=== PATIENT | female | born 1955 | race Caucasian/White ===

== ENCOUNTER 2020-06-16 22:52 | Emergency (ER) | payer MEDICARE, SELFPAY ==
[2020-06-16 22:54] VITALS: BP 105/72; PULSE 94; RESP 18; TEMP 36.6; O2SAT 98; BMI 20.5
--- NOTE | 2020-06-16 23:54 | ED.DCSUM_ITS ---
- ER Visit Summary Date of Service: 06/16/20 Chief Complaint: Fever History of Present Illness: The patient is a 64 F who presents with fever that began tonight. Patient states her fever at home was up to 103. Patient states she called the nurse hotline and was told to come to the emergency department. Patient states she recently tested positive for Covid. Patient admits to a slight cough but denies any shortness of breath. Patient does admit to loss of taste and smell. Patient admits to nausea but denies any vomiting. Patient admits to a mild headache. Patient describes it as aching. Physical Examination: Vital signs are stable. Patient is afebrile. Patient is in no acute distress. Oral mucosa is pink and moist. Neck is supple. Trachea is midline. There is no JVD noted. Heart was regular rate and rhythm. Lungs are clear and equal bilaterally. Abdomen is soft. Bowel sounds are normal. There is no tenderness. There is no rebound or guarding noted. Skin is warm dry. Cranial nerves II through XII are intact. There are no focal motor or sensory deficits noted. Extremities are intact. There is no calf tenderness or edema. Test Results: CBC, comprehensive metabolic profile, and urinalysis were obtained and were essentially within normal limits. Portable chest x-ray was obtained. There is no acute cardiopulmonary process. This was interpreted by the radiologist and reviewed by myself. Emergency Department Course and Treatment: Patient was feeling better on reevaluation. Patient was advised to take Tylenol every 6 hours as needed for fevers. Patient was instructed to drink plenty of fluids. Patient was instructed to follow-up with her primary care physician in 5 to 7 days. Patient understood and was agreeable with the plan. All questions were answered. Disposition: Discharge home Impression: 1. Fever 2. History of COVID-19 This note was generated with [employer] dictation software. It may contain incorrect words, spelling, and punctuation that were not noted in review of the chart prior to signing ED Disposition - Plan for ED Patient: Disposition: Home or Assisted Living Diagnosis: Fever, COVID-19 Instructions: ED Fever Control (Adult) Referrals: Cyndie Ac MD [Primary Care Provider] - 5-7 Days
[2020-06-16 23:58] LABS: Bacteria 0 SEEN /hpf (None Seen); Mucous, Urine 0 SEEN /hpf (<or=2+); Squamous Epithelial Cells - UA 0 SEEN /hpf (5-10)
[2020-06-17 00:02] LABS: Absolute Lymphocyte Count 0.95 X10^3/uL (0.83-4.51); Absolute Neutrophil Count 2.3 X10^3/uL (2.0-7.7); Glucose, Dipstick Normal (Normal); Hematocrit 43.5 % (37-47); Hemoglobin 14.1 g/dL (12.0-15.0); Ketone-Dipstick Negative (Negative); Leukocyte Esterase-Dipstick 25 /ul (Negative); Lymphocyte # 0.95 X10^3/ul (4.0); Lymphocyte % 22.4 % (19-41); Mean Corp Hgb Conc 32.4 g/dL (32-36); Mean Corpuscular Hgb 28.8 pg (27.0-32.0); Mean Corpuscular Volume 88.8 fL (81-99); Mean Platelet Vol. 10.1 fl (6.2-12.0); Monocyte# 0.94 X10^3/uL; Monocyte% 22.2 % (0-10); NRBC Flagged by Analyzer 0 % (0-5); Neutrophil # 2.32 X10^3/uL (2.7-7.7); Neutrophil % 54.7 % (47-70); Nitrite-Dipstick Negative (Negative); Occult Blood-Urine 25 /ul (Negative); Platelet Count 251 K/mm3 (150-450); Protein-Dipstick 30 mg/dl (Negative); RBC Distribution Width CV 12.7 % (11.6-14.6); RBC Distribution Width SD 41.5 fl (35.1-43.9); Urine Bilirubin Dipstick Negative (Negative); Urine Urobilinogen Normal (Normal); White Blood Count 4.2 K/mm3 (4.4-11.0)
[2020-06-17 00:05] LABS: Color, Urine Yellow (Yellow); Urine Clarity Clear (Clear)
--- NOTE | 2020-06-17 00:07 | RAD_ITS ---
HISTORY: FEVER ADDITIONAL HISTORY: None provided. EXAMINATION/TECHNIQUE: XR Chest 1 View AP/PA Number of images including paperwork: 1 COMPARISON: None FINDINGS: LUNGS AND PLEURA: No consolidation, mass or pleural effusion. CARDIAC SILHOUETTE: Unremarkable. MEDIASTINUM AND MAVERICK: Aortic calcification and tortuosity. UPPER ABDOMEN: Unremarkable. SKELETON AND SOFT TISSUES: No acute skeletal findings. OTHER DEVICES AND HARDWARE: None. RAD/Chest 1 View (Portable) IMPRESSION: No acute cardiopulmonary abnormality. at 0033 Reported and signed by: Angelia Chauhan MD Electronically Signed: Angelia Chauhan MD at 0:32 EDT Tel , Service support ,
[2020-06-17 00:09] LABS: Red Blood Cells-Urine 0-5 SEEN /hpf (0-5); White Blood Cells 0-5 SEEN /hpf (0-5)
[2020-06-17 00:13] LABS: Lactic Acid 1.9 mmol/L (0.4-1.9)
[2020-06-17 00:14] LABS: ALB/GLOB Ratio 0.9 RATIO (0.9-2.4); AST(SGOT) 43 U/L (15-37); Alanine Aminotransfer ALT/SGPT 34 U/L (13-56); Albumin, Serum 3.5 g/dL (3.2-5.0); Alkaline Phosphatase 132 U/L (45-117); Anion Gap 6 (5-15); BUN 11 mg/dL (7-18); Calcium,Total 8.4 mg/dL (8.5-10.1); Chloride 101 mmol/L (98-107); Creatinine, Serum 0.79 mg/dL (0.55-1.02); EST Glomerular Filtration Rate 78 mL/min (>60); Est Glom Filt Rate - Afr Amer 94 mL/min (>60); Estimated Creatinine Clearance 38.96 ml/min; Globulin 4.1 g/dL (2.2-4.2); Glucose 101 mg/dL (74-106); Potassium 3.3 mmol/L (3.5-5.1); Protein, Total 7.6 g/dL (6.4-8.2); Sodium Level 134 mmol/L (136-145)
[2020-06-17 01:21] VITALS: PULSE 76; RESP 18; O2SAT 98
[2020-06-17 03:05] VITALS: BP 103/65; PULSE 85; RESP 20; O2SAT 98
== END 2020-06-17 03:07 | disposition home or self-care (01) ==
PROVIDERS: Emergency Provider Emergency Medicine; PCP Internal Medicine
DX: R50.9 Fever, unspecified (principal); U07.1 COVID-19
CPT/HCPCS: 71045; 80053; 81001; 83605; 85025; 99282; A4216

== ENCOUNTER 2020-06-22 14:16 | Emergency (ER) | payer MEDICARE, SELFPAY ==
[2020-06-22] VITALS (7 sets, daily range): BP systolic 121–175; BP diastolic 63–88; PULSE 90–102; RESP 18–24; TEMP 36.1–36.9; O2SAT 96–99; BMI 21.2
--- NOTE | 2020-06-22 14:40 | RAD_ITS ---
STUDY: X-RAY CHEST REASON FOR EXAM: Female, 64 years old. weakness and covid TECHNIQUE: AP COMPARISON: 06/17/2020 FINDINGS: EKG leads project over the chest. Patchy reticular and groundglass opacities along the periphery of the left upper and lower lung zones new since the prior study. There is no demonstrated pleural abnormality. Normal size heart. Normal mediastinum and frederick. Normal visualized pulmonary arteries. There is atherosclerotic calcification of the aortic arch with tortuosity. There is demineralization of the osseous structures. Normal visualized ribs, clavicles, and shoulders. There is no demonstrated abnormality of the visualized soft tissue structures of the upper abdomen. RAD/Chest 1 View (Portable) IMPRESSION: Developing left pulmonary infiltrates favoring pneumonia, viral and bacterial causes. Electronically Signed: Carlton Mckee MD (Brooks) at 15:26 EDT , Service support ,
--- NOTE | 2020-06-22 14:40 | EKG12_ITS ---
Test Reason : Blood Pressure : / mmHG Vent. Rate : 096 BPM Atrial Rate : 096 BPM P-R Int : 100 ms QRS Dur : 102 ms QT Int : 378 ms P-R-T Axes : 037 081 031 degrees QTc Int : 477 ms Sinus rhythm with short NH with Premature atrial complexes Incomplete right bundle branch block Borderline ECG Confirmed by TAMMY ECHEVERRIA, FLOYD ([id number]), editorial intern HELEN LACY ([id number]) on 06/25/2020 11:21:52 AM Referred By: DAJUAN Confirmed By:FLOYD MUNOZ MD
--- NOTE | 2020-06-22 14:41 | ED.VISSUMM ---
- ER Visit Summary Date of Service: 06/22/20 Chief Complaint: Generalized weakness History of Present Illness: The patient is a 64 F apparently Covid positive about 10 days ago. States that today he has felt weak all over. Nausea without vomiting. No diarrhea. No melena or constipation. No recent fever last several days mild cough. She denies any shortness of breath. She does have a history of hypertension and hypothyroidism. She denies any dysuria. Physical Examination: Older female no acute distress vital signs stable afebrile. She does not look septic or toxic. Pulse ox 90% on room air no hypoxia. 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 Mucous membranes are moist. Extra motions are intact. Neck nontender. No lymphadenopathy. No JVD. Lungs there to auscultation bilaterally. Heart regular rhythm rate about 100 no murmur. Abdomen soft nontender. Normal bowel sounds no peritoneal signs. No obstruction. Patient is moving all 4 extremities. They are nontender. No edema. She has equal symmetrical dashboard developer strength. Dorsi plantarflexion intact. She can raise either arm or legs without any difficulty. Neurologically she is awake and alert. She is a left facial droop that is old from Boykin's palsy. Otherwise she has no focal motor deficits. Back nontender. Skin unremarkable. She is awake and alert. She is answering questions and following commands. Test Results: CBC normal white count of 6. Hemoglobin 12. Chemistries unremarkable except potassium of 3.0. Normal gap at 9 BUN of 12 creatinine 0.7. Liver enzymes unremarkable except for alk phos 138. UA negative. Troponin normal. Lactate 2.6. EKG sinus rhythm rate of 96 with PACs no MA or ischemia. Chest x-ray radiologist read as possible left lower lobe infiltrate I also reviewed portable 1 view film and there is really would not call anything from it. Emergency Department Course and Treatment: Elderly female generalized weakness. Screening labs will be obtained along with a chest x-ray and EKG. Should be given a liter of IV fluids. Repeat exam at 1630 p.m. patient is doing well. I went over all of her test results with her. Nurse retook her temperature which was normal at 97 degrees. She will be ambulated if she does well she will be discharged home. She will be given potassium prior to discharge. Treatment Plan: Potassium rich foods. Follow-up with her primary care physician this week. Return if worse. 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 It may contain incorrect words, spelling, and punctuation that were not noted in review of the chart prior to signing ED Disposition - Plan for ED Patient: Referrals: Cyndie Ac MD [Primary Care Provider] -
[2020-06-22] MEDS: 0.9% Normal Saline 1,000 ML 999 ML IV (14:48)
[2020-06-22 14:59] LABS: Absolute Lymphocyte Count 0.83 X10^3/uL (0.83-4.51); Basophil# 0.01 X10^3/uL; Basophil% 0.2 % (0-1); Eosinophil# 0.01 X10^3/uL; Eosinophils% 0.2 % (0-5); Hematocrit 39.1 % (37-47); Hemoglobin 12.6 g/dL (12.0-15.0); Lymphocyte # 0.83 X10^3/ul (4.0); Mean Corp Hgb Conc 32.2 g/dL (32-36); Mean Corpuscular Volume 89.9 fL (81-99); Mean Platelet Vol. 9.7 fl (6.2-12.0); Monocyte% 7.8 % (0-10); NRBC Flagged by Analyzer 0 % (0-5); Neutrophil % 78.3 % (47-70); Platelet Count 503 K/mm3 (150-450); RBC Distribution Width CV 12.6 % (11.6-14.6); RBC Distribution Width SD 42.1 fl (35.1-43.9); Red Blood Count 4.35 M/mm3 (4.2-5.4); White Blood Count 6.4 K/mm3 (4.4-11.0)
[2020-06-22 15:17] LABS: ALB/GLOB Ratio 0.8 RATIO (0.9-2.4); AST(SGOT) 17 U/L (15-37); Alanine Aminotransfer ALT/SGPT 23 U/L (13-56); Albumin, Serum 3.1 g/dL (3.2-5.0); Alkaline Phosphatase 138 U/L (45-117); Anion Gap 9 (5-15); BUN 12 mg/dL (7-18); BUN/Creat Ratio 15.8 RATIO (10-20); Chloride 108 mmol/L (98-107); Creatinine, Serum 0.76 mg/dL (0.55-1.02); EST Glomerular Filtration Rate 81 mL/min (>60); Est Glom Filt Rate - Afr Amer 98 mL/min (>60); Estimated Creatinine Clearance 40.36 ml/min; Globulin 4.1 g/dL (2.2-4.2); Glucose 141 mg/dL (74-106); Protein, Total 7.2 g/dL (6.4-8.2); Sodium Level 141 mmol/L (136-145)
[2020-06-22 15:20] LABS: Lactic Acid 2.6 mmol/L (0.4-1.9)
[2020-06-22 15:48] LABS: Color, Urine Yellow (Yellow); Glucose, Dipstick Normal (Normal); Ketone-Dipstick Negative (Negative); Leukocyte Esterase-Dipstick Negative /ul (Negative); Nitrite-Dipstick Negative (Negative); Occult Blood-Urine 10 /ul (Negative); Protein-Dipstick Negative (Negative); Specific Gravity, Urine 1.005 (1.002-1.030); Urine Bilirubin Dipstick Negative (Negative); Urine Clarity Clear (Clear); Urine Urobilinogen Normal (Normal); Urine pH 6.5 (5.0 - 8.0)
[2020-06-22 15:49] LABS: Mucous, Urine 0 SEEN /hpf (<or=2+); Red Blood Cells-Urine 0 SEEN /hpf (0-5); Squamous Epithelial Cells - UA 0 SEEN /hpf (5-10); White Blood Cells 0 SEEN /hpf (0-5)
[2020-06-22 16:05] LABS: Bacteria RARE /hpf (None Seen)
--- NOTE | 2020-06-22 16:48 | ED.DEP ---
ED Disposition - Plan for ED Patient: Disposition: Home or Assisted Living Instructions: ED Weakness UKO, ED Potassium Deficiency Referrals: Cyndie Ac MD [Primary Care Provider] - 3-5 Days Additional Instructions: Your potassium is slightly low. Make sure you are eating potassium rich foods such as green leafy vegetables, bananas, potatoes. Follow-up with your doctor this week. Return if feeling worse.
[2020-06-22 18:45] LABS: Reflex Lactate? Y
== END 2020-06-22 17:29 | disposition home or self-care (01) ==
PROVIDERS: Emergency Provider Emergency Medicine; PCP Internal Medicine
DX: U07.1 COVID-19 (principal); E87.6 Hypokalemia; R29.810 Facial weakness; I10 Essential (primary) hypertension; E03.9 Hypothyroidism, unspecified
CPT/HCPCS: 71045; 80053; 81001; 83605; 84484; 85025; 93005; 96360; 96361; 99285; J7030

== ENCOUNTER 2020-06-23 13:44 | Inpatient (IN) | payer MEDICARE, SELFPAY ==
[2020-06-22 14:17] VITALS: BMI 21.2
[2020-06-23] VITALS (13 sets, daily range): BP systolic 121–142; BP diastolic 71–103; PULSE 70–93; RESP 14–19; TEMP 36.2–36.8; O2SAT 97–99; BMI 20.5; BMI 21.2
--- NOTE | 2020-06-23 14:25 | EKG12_ITS ---
Test Reason : NEURO S/SX Blood Pressure : / mmHG Vent. Rate : 077 BPM Atrial Rate : 077 BPM P-R Int : 120 ms QRS Dur : 104 ms QT Int : 426 ms P-R-T Axes : 069 081 039 degrees QTc Int : 482 ms Normal sinus rhythm Incomplete right bundle branch block Borderline ECG Confirmed by TAMMY ECHEVERRIA, FLOYD ([id number]), pictures editor HELEN LACY ([id number]) on 06/25/2020 11:29:02 AM Referred By: SERA Confirmed By:FLOYD MUNOZ MD
--- NOTE | 2020-06-23 14:25 | CT_ITS ---
STUDY: CT BRAIN WITHOUT CONTRAST REASON FOR EXAM: Female, 64 years old. LEFT ARM PARESTHESIAS, N/T RADIATION DOSAGE (If Supplied By Facility): CTDIvol = ( 44.99 ) mGy, DLP = ( 745.49 ) mGycm TECHNIQUE: Transaxial CT imaging of the brain was performed without administration of intravenous contrast material. Individualized dose optimization techniques were used for this CT. COMPARISON: No relevant priors. FINDINGS: Normal soft tissue structures. Normal calvarium. There is mild cerebral atrophy with widening of the extra-axial spaces and ventricular dilatation. There are areas of decreased attenuation within the white matter tracts of the supratentorial brain, consistent with microvascular disease changes. Normal basal ganglia and thalami. Normal brainstem. Normal cerebellum. There is no intracranial hemorrhage. There are no findings of an acute ischemic infarction. Normal visualized paranasal sinuses. CT/Brain/Head without Contrast IMPRESSION: 1. No acute intracranial hemorrhage or mass effect. 2. Central parenchymal volume loss. White matter changes that are nonspecific but most commonly associated with chronic small vessel ischemic disease. Electronically Signed: Carlton Mckee MD (Brooks) at 15:22 EST , Service support ,
--- NOTE | 2020-06-23 14:35 | ED.RN ---
left facial droop not new
[2020-06-23] MEDS: 0.9% Normal Saline 1,000 ML 100 ML IV (14:43)
[2020-06-23 14:55] LABS: Bedside Glucose 109 mg/dL (70-110)
[2020-06-23 14:57] LABS: Bacteria 0 SEEN /hpf (None Seen); Red Blood Cells-Urine 0 SEEN /hpf (0-5)
--- NOTE | 2020-06-23 15:00 | RAD_ITS ---
STUDY: X-RAY CHEST REASON FOR EXAM: Female, 64 years old. WEAKNESS TECHNIQUE: AP COMPARISON: Yesterday FINDINGS: EKG leads project over the chest. Similar amorphous opacity in the lateral left upper lobe. There is no demonstrated pleural abnormality. Normal size heart. Normal mediastinum and frederick. Normal visualized pulmonary arteries. There is atherosclerotic calcification of the aortic arch with tortuosity. There is demineralization of the osseous structures. Normal visualized ribs, clavicles, and shoulders. There is no demonstrated abnormality of the visualized soft tissue structures of the upper abdomen. RAD/Chest 1 View IMPRESSION: Similar localized infiltrate left upper lobe. Electronically Signed: Carlton Mckee MD (Brooks) at 15:21 EST , Service support ,
[2020-06-23 15:02] LABS: Color, Urine Yellow (Yellow); Glucose, Dipstick Normal (Normal); Ketone-Dipstick Negative (Negative); Leukocyte Esterase-Dipstick 25 /ul (Negative); Nitrite-Dipstick Negative (Negative); Occult Blood-Urine 10 /ul (Negative); Protein-Dipstick Negative (Negative); Urine Bilirubin Dipstick Negative (Negative); Urine Clarity Clear (Clear); Urine Urobilinogen Normal (Normal)
[2020-06-23 15:03] LABS: Absolute Lymphocyte Count 1.25 X10^3/uL (0.83-4.51); Absolute Neutrophil Count 3.6 X10^3/uL (2.0-7.7); Basophil# 0.01 X10^3/uL; Basophil% 0.2 % (0-1); Eosinophil# 0.02 X10^3/uL; Eosinophils% 0.4 % (0-5); Hematocrit 40.4 % (37-47); Hemoglobin 13.2 g/dL (12.0-15.0); Lymphocyte # 1.25 X10^3/ul (4.0); Lymphocyte % 22.2 % (19-41); Mean Corp Hgb Conc 32.7 g/dL (32-36); Mean Corpuscular Hgb 29.3 pg (27.0-32.0); Mean Corpuscular Volume 89.8 fL (81-99); Mean Platelet Vol. 9.4 fl (6.2-12.0); Monocyte# 0.72 X10^3/uL; Monocyte% 12.8 % (0-10); NRBC Flagged by Analyzer 0 % (0-5); Platelet Count 629 K/mm3 (150-450); RBC Distribution Width CV 12.7 % (11.6-14.6); RBC Distribution Width SD 41.7 fl (35.1-43.9); White Blood Count 5.6 K/mm3 (4.4-11.0)
[2020-06-23 15:16] LABS: Squamous Epithelial Cells - UA 0-5 SEEN /hpf (5-10); White Blood Cells 0-5 SEEN /hpf (0-5)
[2020-06-23 15:17] LABS: Mucous, Urine RARE /hpf (<or=2+)
[2020-06-23 15:22] LABS: Anion Gap 8 (5-15); BUN 9 mg/dL (7-18); BUN/Creat Ratio 13.2 RATIO (10-20); Calcium,Total 9.4 mg/dL (8.5-10.1); Chloride 107 mmol/L (98-107); Creatinine, Serum 0.68 mg/dL (0.55-1.02); EST Glomerular Filtration Rate 91 mL/min (>60); Est Glom Filt Rate - Afr Amer 111 mL/min (>60); Estimated Creatinine Clearance 39.05 ml/min; Glucose 94 mg/dL (74-106); Potassium 3.3 mmol/L (3.5-5.1); Sodium Level 141 mmol/L (136-145)
[2020-06-23 15:23] LABS: Prothrombin Time (Protime)PT. 12.9 SECONDS (11.7-14.9)
[2020-06-23 15:24] LABS: Partial Thromboplast Time 28.5 Seconds (24.1-36.2)
[2020-06-23 15:45] LABS: CPK Total, Creatine Kinase 223 U/L (26-192)
--- NOTE | 2020-06-23 16:46 | ED.VIS.STROK ---
History of Present Illness Chief Complaint: Neuro S/Sx Informant: Patient Onset: Yesterday Context: Gradual Onset Quality and Location: Left Facial Droop, Left Arm Parasthesia, - - Difficulty swallowing Narrative: Patient is a 64-year-old female that was diagnosed with coronavirus 2 weeks ago. She is presenting today with weakness and paresthesias of her left hand as well as trouble swallowing. Patient states the symptoms started yesterday and she is actually seen in the ER for generalized weakness at that time. She notes that today she had a hard time swallowing pills which is abnormal for her. She still been able to drink and eat and drink however. She is also having tingling in her left hand and states it is hard to pick things up but she thinks some of that because she feels so weak all over. She continues to have a cough but otherwise her symptoms from coronavirus have resolved including fever and shortness of breath. She does not have any myalgias. She does live home alone. She denies any difficulty walking. 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 Past Medical History - Allergies and Home Meds Allergies/Adverse Reactions: Allergies Sulfa (Sulfonamide Antibiotics) Adverse Reaction (Verified 06/23/20 13:46) Hives Past Medical History: - - Gibson Palsy, hypothyroid, hypertension Lives: Alone Smoking Status: Never smoker - Family History Maternal Family History: Reports: No pertinent history Paternal Family History: Reports: No pertinent history Review of Systems General: Reports: Malaise. Denies: Chills, Fever, Sweats Eyes: Denies: Visual changes - bilaterally, Diplopia ENT: Reports: - - left facial droop . Denies: Bilateral ear pain, Rhinorrhea, Sore throat Cardiovascular: Denies: Chest pain, Palpitations Respiratory: Denies: Dyspnea, Cough, Dyspnea on exertion Gastrointestinal: Denies: Abdominal pain, Nausea, Vomiting, Diarrhea, Melena, Hematochezia Genitourinary: Denies: Dysuria, Hematuria, Frequency Musculoskeletal: Denies: Back pain, Extremity Pain Skin: Denies: Rash, Wounds Neurological: Reports: Weakness - left hand, also generalized , Parasthesia - left hand , - - difficulty swallowing. Denies: Headache, Numbness STROKE Vital Signs/Narrative: Vital Signs Temp Pulse Resp BP Pulse Ox 06/23/20 15:25 80 17 137/81 H 99 06/23/20 14:55 83 19 H 121/71 H 99 06/23/20 14:32 86 18 135/82 H 99 06/23/20 13:46 97.2 F L 93 18 135/103 H 99 Inital Vital Signs reviewed: Yes - NIHSS Initial 1a Level of Consciousness: 0 1b LOC Questions (Score 2 if aphasic/stupor): 0 1c LOC Commands (Only score 1st attempt): 0 2 Best Gaze (If aphasic, use reflexive mvmts.): 0 3 Visual: 0 4 Facial Palsy: 2 - chronic 5 Motor Arm Right (UN = amputation/fusion): 0 5 Motor Arm Left: 0 6 Motor Leg Right: 0 6 Motor Leg Left: 0 7 Limb ataxia (Only + if out of proportion): 0 8 Sensory (Aphasia/stupor=0 or 1, coma=2): 0 9 Best Language: 0 10 Dysarthria (mute, coma=2, intubated=UN): 0 11 Extinction and Inattention (only scored if +): 0 Total Score: 2 General: Well nourished, Well developed Head: Normocephalic, Atraumatic Eyes: Perrl, EOMI ENT: Moist mucous membranes, No rhinorrhea, TM's clear, - - left facial droop Neck: Supple, Nontender, No JVD Cardiovascular: Regular rate, Regular rhythm, No murmurs Respiratory: No distress, CTA bilaterally, Chest nontender Abdomen: Soft, Nontender, Nondistended, Normal bowel sounds Back: Nontender, Normal Inspection Extremities: Nontender, No edema. Negative for: Tenderness, Edema Skin: Normal color, No rash Neurological: Alert, Oriented x3, Normal Strength, Normal Sensation, Parasthesia - sensation of left hand intact to light touch , Left side facial droop. Negative for: Weakness Psychological: Normal affect Diagnostic/Tx/Re-eval Clinical Impression(s) from Imaging Studies Brain CT 06/23/20 14:25 IMPRESSION: 1. No acute intracranial hemorrhage or mass effect. 2. Central parenchymal volume loss. White matter changes that are nonspecific but most commonly associated with chronic small vessel ischemic disease. Electronically Signed: Carlton Mckee MD (Brooks) at 15:22 EST , Service support , Chest X-Ray 06/23/20 15:00 IMPRESSION: Similar localized infiltrate left upper lobe. Electronically Signed: Carlton Mckee MD (Brooks) at 15:21 EST , Service support , Laboratory Data 06/23/20 06/23/20 06/23/20 14:15 14:40 14:40 WBC 5.6 RBC 4.50 Hgb 13.2 Hct 40.4 MCV 89.8 MCH 29.3 MCHC 32.7 RDW Std Deviation 41.7 RDW Coeff of Ravi 12.7 Plt Count 629 H MPV 9.4 Immature Gran % (Auto) 0.400 Neut % (Auto) 64.0 Lymph % (Auto) 22.2 [place] % (Auto) 12.8 H Eos % (Auto) 0.4 Baso % (Auto) 0.2 Absolute Neuts (auto) 3.6 Absolute Lymphs (auto) 1.25 Nucleated RBC % 0 PT 12.9 INR 1.0 APTT 28.5 Sodium Potassium Chloride Carbon Dioxide Anion Gap BUN Creatinine Estim Creat Clear Calc Est GFR (MDRD) Af Amer Est GFR (MDRD) Non-Af BUN/Creatinine Ratio Glucose Calcium Total Creatine Kinase Troponin I Triglycerides Cholesterol LDL Cholesterol VLDL Cholesterol HDL Cholesterol Urine Color Urine Clarity Urine pH Ur Specific Randolph Urine Protein Urine Glucose (UA) Urine Ketones Urine Occult Blood Urine Nitrite Urine Bilirubin Urine Urobilinogen Ur Leukocyte Esterase Urine RBC Urine WBC Ur Squamous Epith Cells Urine Bacteria Urine Mucus COVID-19 (BERNABE) POC Glucose 109 06/23/20 06/23/20 06/23/20 14:40 14:40 14:40 WBC RBC Hgb Hct MCV MCH MCHC RDW Std Deviation RDW Coeff of Ravi Plt Count MPV Immature Gran % (Auto) Neut % (Auto) Lymph % (Auto) [place] % (Auto) Eos % (Auto) Baso % (Auto) Absolute Neuts (auto) Absolute Lymphs (auto) Nucleated RBC % PT INR APTT Sodium 141 Potassium 3.3 L Chloride 107 Carbon Dioxide 26.0 Anion Gap 8 BUN 9 Creatinine 0.68 Estim Creat Clear Calc 39.05 Est GFR (MDRD) Af Amer 111 Est GFR (MDRD) Non-Af 91 BUN/Creatinine Ratio 13.2 Glucose 94 Calcium 9.4 Total Creatine Kinase 223 H Troponin I < 0.015 Triglycerides Cholesterol LDL Cholesterol VLDL Cholesterol HDL Cholesterol Urine Color Yellow Urine Clarity Clear Urine pH 6.0 Ur Specific [place] 1.010 Urine Protein Negative Urine Glucose (UA) Normal Urine Ketones Negative Urine Occult Blood 10 H Urine Nitrite Negative Urine Bilirubin Negative Urine Urobilinogen Normal Ur Leukocyte Esterase 25 H Urine RBC 0 SEEN Urine WBC 0-5 SEEN Ur Squamous Epith Cells 0-5 SEEN Urine Bacteria 0 SEEN Urine Mucus RARE COVID-19 (BERNABE) POC Glucose 06/23/20 06/23/20 14:40 14:50 WBC RBC Hgb Hct MCV MCH MCHC RDW Std Deviation RDW Coeff of Ravi Plt Count MPV Immature Gran % (Auto) Neut % (Auto) Lymph % (Auto) [place] % (Auto) Eos % (Auto) Baso % (Auto) Absolute Neuts (auto) Absolute Lymphs (auto) Nucleated RBC % PT INR APTT Sodium Potassium Chloride Carbon Dioxide Anion Gap BUN Creatinine Estim Creat Clear Calc Est GFR (MDRD) Af Amer Est GFR (MDRD) Non-Af BUN/Creatinine Ratio Glucose Calcium Total Creatine Kinase Troponin I Triglycerides 103 Cholesterol 193 LDL Cholesterol 126 VLDL Cholesterol 21 HDL Cholesterol 46 Urine Color Urine Clarity Urine pH Ur Specific [place] Urine Protein Urine Glucose (UA) Urine Ketones Urine Occult Blood Urine Nitrite Urine Bilirubin Urine Urobilinogen Ur Leukocyte Esterase Urine RBC Urine WBC Ur Squamous Epith Cells Urine Bacteria Urine Mucus COVID-19 (BERNABE) Positive POC Glucose Chest X-Ray - ED: 1 View, Read by ED Physician, Read by Radiologist, Left Infiltrate - Rhythm Strip Rhythm Strip: Sinus Rhythm Rate: 77 Ectopy: None - EKG Initial EKG Interpretation: Sinus Rhythm, RBBB, - - Sinus rhythm and rate of 77 Normal axis Normal intervals Normal ST segments Incomplete right bundle branch block present - Medical Decision Making Stroke Team Activated: No Patient is evaluated for worsening generalized weakness, recent Covid infection and now paresthesias of her left hand. She states he also feels weak all over. As patient does have new paresthesias that is asymmetric, concerned she possibly could have had a stroke. Her symptoms started yesterday. Her NIH is 2 but is actually for chronic facial droop associated with Boykin's palsy. Patient not TPA candidate given her symptoms.patient also been having difficulty swallowing starting today. CBC is unremarkable. Her potassium is mildly low at 3.3 which is actually slightly improved from yesterday. She does have a mildly elevated CPK of 223 however she does not meet criteria for rhabdomyolysis. Patient is given some IV fluids in the ER. Urinalysis shows a persistent left upper lobe infiltrates and she continues to test positive for Covid. CT of the brain does not show any acute process. Patient is given aspirin in the ER. She will be admitted for further neurologic evaluation/MRI to rule out stroke and possible speech evaluation given her dysphagia. Patient is agreeable with plan of care. She stable for general medical floor at time of disposition. ED Disposition - Plan for ED Patient: Diagnosis: Left arm weakness, Hypertension, Difficulty swallowing
--- NOTE | 2020-06-23 16:52 | ED.RN ---
left facial droop not new.
[2020-06-23 17:29] LABS: Probe Check PASS; Specimen Processing Control PASS
--- NOTE | 2020-06-23 17:45 | HP.PCM_ITS ---
Problem List (1) Left arm weakness Status: Acute (2) Hypertension Status: Chronic (3) Hypothyroidism Status: Chronic History of Present Illness Date of Admission: 06/23/20 Chief Complaint: Left arm weakness, paresthesia. The patient is a 64 year old F with past medical history as mentioned above presented to the emergency room because of left arm weakness and paresthesia. Patient is very poor informant and was not able to provide good detailed history. She stated that she came in today because of weakness. Initially, she could not localize the weakness and which extremity is affected. She kept telling me she came because of weakness. She mentioned that she did have some weakness on the left arm, not sure when it is started, associated with minimal numbness on the left arm and no other associated symptoms. She complained of general weakness as well. 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 She was diagnosed with COVID-19 almost 2 weeks ago. Only symptom she has today is cough, no shortness of breath or fever. In the emergency department, her vital signs were stable, afebrile, pulse ox was 99% on room air. Routine blood work was remarkable for potassium of 3.3, otherwise normal. EKG revealed normal sinus rhythm, incomplete RBBB, no acute findings. Troponin was negative. UA was clean. COVID-19 PCR came back positive. CT scan brain showed no acute infarct or hemorrhage. Chest x-ray showed no obvious infiltrate, reported as similar localized infiltrate of the left upper lobe. I doubt pneumonia. Patient is being admitted for observation for left arm weakness/paresthesia for evaluation. Past Medical History Past Medical History (Chronic Problems): Chronic Problems Left-sided Boykin's palsy (Chronic) Hypertension (Chronic) Hypothyroidism (Chronic) Allergies Sulfa (Sulfonamide Antibiotics) Adverse Reaction (Verified 06/23/20 13:46) Hives Home Medications: Ambulatory Orders Medication Instructions Recorded Levothyroxine [Synthroid] 75 mcg PO DAILY 06/22/20 Lisinopril 5 mg PO DAILY 06/22/20 Surgical History: noncontributory Psychiatric History: No pertinent psych hx WORKGROUP LEADER History: No pertinent WORKGROUP LEADER history Lives: Alone Smoking Status: Never smoker Alcohol: None Drugs: None - *Family History Maternal History Items: No pertinent history Paternal History Items: No pertinent history Review of Systems Constitutional: Denies: Anorexia, Chills, Fever, Weakness Eyes: Denies: Blurred vision, Double vision, Drainage, Redness HEENT: Denies: Difficulty Hearing, Ear Pain, Eye Pain, Nasal Congestion, Sore Throat Cardiovascular: Denies: Chest Pain, Chest Pressure, Heaviness, Light Headedness, Palpitations, Syncope Respiratory: Reports: Cough. Denies: Hemoptysis, Pleuritic Pain, Shortness of Breath, Sputum production, Wheezing Gastrointestinal: Denies: Abdominal Pain, Constipation, Diarrhea, Nausea, Vomiting Genitourinary: Denies: Dysuria, Frequency, Hematuria Musculoskeletal: Denies: Arm Pain, Back Pain, Foot Pain Skin: Denies: Dryness, Rash Neurological: Reports: Focal weakness, Numbness. Denies: Balance problems, Double vision, Change in Speech, Slurred speech, Confusion, Headaches, Incoordination Psychiatric: Denies: Anxiety, Depression Endocrine: Denies: Change in Body Habitus, Polydipsia, Polyuria VTE Information - Inpt Only VTE Present on Admission: No VTE Mechan Device Prophylaxis: None VTE Pharm Prophylaxis ordered?: Yes Patient Problems: Active and Suspected Problems Left arm weakness (Acute) - Physical Exam Vitals/I&O's: Vital Signs Temp Pulse Resp BP Pulse Ox 97.2 F L 92 14 125/82 H 97 06/23/20 13:46 06/23/20 17:38 06/23/20 17:38 06/23/20 17:38 06/23/20 17:38 Oxygen Delivery Method Room Air Weight: 98 lb 8.746 oz Body Mass Index (BMI) 20.5 Finger Stick Blood Glucose 109 General: Alert, Oriented x3, Cooperative, No apparent distress HEENT: Atraumatic, PERRLA, EOMI, Normocephalic Oral: Moist Mucosa, No Gingival or Mucosal Lesions/ Ulcerations Neck: Supple, No JVD, Negative Carotid Bruits, Trachea Midline, Thyroid Normal Size and Texture Lungs: Clear to auscultation, Normal air movement, No rhonchi, No wheeze, No rales Cardiovascular: Regular rate, Regular Rhythm, Normal S1, Normal S2, PMI Normal Abdomen: Bowel Sounds Present, Soft, Non Tender, Non-Distended, No Hepato- splenomegaly Extremities: No clubbing, No cyanosis, No edema Skin: No rashes, No breakdown Lymphatic: No Cervical, Supraclavicular, or Inguinal Adenopathy Neurological: Motor Exam 5/5 strength throughout, - - Left facial droop. Psych/Mental Status: Normal Affect, Appropriate Laboratory Results 06/23/20 14:15: POC Glucose 109 06/23/20 14:40: WBC 5.6, RBC 4.50, Hgb 13.2, Hct 40.4, MCV 89.8, MCH 29.3, MCHC 32.7, RDW Std Deviation 41.7, RDW Coeff of Ravi 12.7, Plt Count 629 H, MPV 9.4, Immature Gran % (Auto) 0.400, Neut % (Auto) 64.0, Lymph % (Auto) 22.2, [place]ven % (Auto) 12.8 H, Eos % (Auto) 0.4, Baso % (Auto) 0.2, Absolute Neuts (auto) 3.6, Absolute Lymphs (auto) 1.25, Nucleated RBC % 0 06/23/20 14:40: PT 12.9, INR 1.0, APTT 28.5 06/23/20 14:40: Sodium 141, Potassium 3.3 L, Chloride 107, Carbon Dioxide 26.0, Anion Gap 8, BUN 9, Creatinine 0.68, Estim Creat Clear Calc 39.05, Est GFR (MDRD) Af Amer 111, Est GFR (MDRD) Non-Af 91, BUN/Creatinine Ratio 13.2, Glucose 94, Calcium 9.4, Troponin I < 0.015 06/23/20 14:40: Total Creatine Kinase 223 H 06/23/20 14:40: Urine Color Yellow, Urine Clarity Clear, Urine pH 6.0, Ur Specific [place] 1.010, Urine Protein Negative, Urine Glucose (UA) Normal, Urine Ketones Negative, Urine Occult Blood 10 H, Urine Nitrite Negative, Urine Bilirubin Negative, Urine Urobilinogen Normal, Ur Leukocyte Esterase 25 H, Urine RBC 0 SEEN, Urine WBC 0-5 SEEN, Ur Squamous Epith Cells 0-5 SEEN, Urine Bacteria 0 SEEN, Urine Mucus RARE 06/23/20 14:50: COVID-19 ([facility]) Positive Clinical Impression(s) from Imaging Studies Brain CT 06/23/20 14:25 IMPRESSION: 1. No acute intracranial hemorrhage or mass effect. 2. Central parenchymal volume loss. White matter changes that are nonspecific but most commonly associated with chronic small vessel ischemic disease. Electronically Signed: Carlton Mckee MD ([place]) at 15:22 EST , Service support , Chest X-Ray 06/23/20 15:00 IMPRESSION: Similar localized infiltrate left upper lobe. Electronically Signed: Carlton Mckee MD ([place]) at 15:21 EST , Service support , Current Medications Sodium Chloride () 1,000 mls @ 100 mls/hr IV .Q10H ONE Stop: 06/24/20 00:25 Last Admin: 06/23/20 14:43 Dose: 100 mls/hr Documented by: Assessment/Plan All Active Problems Left arm weakness (Acute) This is a 64 years old female patient presented to the emergency room because of questionable left arm weakness/paresthesia, had COVID-19 diagnosed almost 2 weeks ago and she is being admitted for evaluation. #1 left arm weakness/paresthesia: Patient is very poor informant, was not able to localize her symptoms but reportedly, she came because of left arm weakness and paresthesia. CT scan brain showed no acute findings. She does have chronic left Boykin's palsy. Vital signs are stable. EKG reviewed as above. Plan: Admit to [facility] COVID-19 floor observation, cardiac monitoring, NIH stroke scale, lipid profile, start aspirin and Lipitor, MRI brain, replace potassium, PT OT evaluation and treatment. At this time, my suspicion of stroke is low and if the MRI came back positive for stroke, we should proceed to full stroke work-up including CTA of the head and neck as well as 2D echocardiogram. #2 recent COVID-19 pneumonia: Chest x-ray reviewed, no obvious findings, reported as similar localized left upper lobe infiltrate. Apart from cough, patient has no symptoms. She is afebrile, no leukocytosis. Pulse ox is maintained on room air. Plan: Isolation precautions, no indication for other treatments. Patient is likely recovering. #3 hypertension: Blood pressure stable, continue lisinopril. #4 hypothyroidism: Stable, continue levothyroxine. #5 chronic left Boykin's palsy: Plan as above. #6 DVT prophylaxis: Subcu Lovenox. This note was generated with [employer] software. It may contain incorrect words, spelling, and punctuation that were not noted in checking the note before signing. OBSV E&M: 88358 Initial observation care L2
--- NOTE | 2020-06-23 18:10 | ED.RN ---
Per Dr. Maynard, okay to discontinue nih every 30 mins.
[2020-06-23] MEDS: Aspirin 81 MG TAB.CHEW 324 MG PO (18:39)
[2020-06-23 19:26] LABS: Cholesterol 193 mg/dL (200); High Density Lipoprotein 46 mg/dL; Triglycerides 103 mg/dL; Very Low Density Lipoprotein 21 mg/dL (5-40)
[2020-06-24] VITALS (13 sets, daily range): BP systolic 106–134; BP diastolic 63–95; PULSE 67–91; RESP 14–18; TEMP 36.6–36.9; O2SAT 97–99; BMI 21.2
[2020-06-24] MEDS: Aspirin 81 MG TAB.CHEW PO (09:08)
[2020-06-24] MEDS: Enoxaparin 40 MG/0.4 ML Syringe SC (09:08)
[2020-06-24] MEDS: Lisinopril 5 MG Tablet PO (09:08)
--- NOTE | 2020-06-24 14:00 | MRI_ITS ---
We are attempting to reach an attending provider to discuss findings. An addendum with communication details will be sent when the communication is complete. STUDY: MRI BRAIN WITHOUT CONTRAST REASON FOR EXAM: Female, 64 years old. left arm weakness, covid+ TECHNIQUE: Standardized multiplanar fat and water weighted pulse sequences were obtained. COMPARISON: CT head 06/23/2020. FINDINGS: There is no intracranial mass, mass effect, or midline shift. No demonstrated hemorrhage. There multiple foci of restricted diffusion in the right temporal, posterior frontal, and posterior parietal lobes, consistent with middle cerebral artery infarct. Normal size of the ventricles and extra-axial spaces for the patient''s age. There are a limited number of small white matter hyperintensities, distributed throughout the deep white matter tracts of the cerebral hemispheres, consistent with mild chronic white matter ischemic changes. Normal bilateral basal ganglia. Normal thalami. There is no extra-axial fluid accumulation. Normal flow voids within the major intracranial circulation suggesting patency by spin echo criteria. Normal sella turcica, pituitary gland, infundibular stalk, optic chiasm and hypothalamus. Normal midbrain, vanita and medulla. Normal cerebellum. Normal basal cisterns. Normal bilateral temporal bones. Normal bilateral internal auditory canals. No demonstrated orbital abnormality, within the constraints of a routine brain study. Normal visualized paranasal sinuses. Normal calvarium and skull base. Normal visualized soft tissue structures. MRI/Brain without Contrast IMPRESSION: 1. Acute, nonhemorrhagic infarct in the right MCA distribution. 2. Mild microvascular ischemic changes. Electronically Signed: Svetlana Hernandez MD at 16:22 EST Tel , Service support ,
[2020-06-24] MEDS: Clopidogrel Bisulfate 75 MG Tablet PO (17:53)
--- NOTE | 2020-06-24 19:30 | PN_ITS ---
Patient Problems: Active and Suspected Problems Difficulty swallowing (Acute) Left arm weakness (Acute) Subjective: Patient was seen and examined today, her MRI of the brain resulted in a positive reading for an ischemic stroke in the area of the right MCA. I made the patient an admission today and ordered an echocardiogram on the patient. I also explained to the patient that she had a stroke in the right cerebral area, she appeared to be upset about this but I told her that this was obviously a small stroke because she has very little weakness in her left arm. - Physical Exam Vitals/I&O's: Vital Signs Temp Pulse Resp BP Pulse Ox 98.3 F 76 16 126/67 H 99 06/24/20 16:09 06/24/20 16:09 06/24/20 16:09 06/24/20 16:09 06/24/20 17:19 Oxygen Delivery Method Room Air Weight: 46.085 kg Body Mass Index (BMI) 21.2 Finger Stick Blood Glucose 109 Intake and Output for Last 24 Hours 06/23/20 06/23/20 06/24/20 00:59 23:59 23:59 Intake Total 2099 Balance 2099 General: Alert, Oriented x3, Cooperative, No apparent distress, Well developed HEENT: Atraumatic, PERRLA, EOMI, Normocephalic, - - Patient has left-sided facial drooping which is chronic in nature Oral: Moist Mucosa Neck: Supple, No JVD, Negative Carotid Bruits, Trachea Midline, Thyroid Normal Size and Texture Lungs: Clear to auscultation, Normal air movement, No rhonchi, No wheeze, No rales Cardiovascular: Regular rate, Regular Rhythm, Normal S1, Normal S2, No murmurs Abdomen: Bowel Sounds Present, Soft, Non Tender, Non-Distended Extremities: No clubbing, No cyanosis, No edema, Capillary Refill Less than 3 Seconds Skin: No rashes, No breakdown Musculoskeletal: No Tenderness to Palpation of Joints or Extremities Neurological: Cranial nerves II-XII grossly intact, Neuro grossly intact, - - Patient has left-sided facial drooping Psych/Mental Status: Normal Affect, Appropriate, Alert and oriented to time, place, person, mood and affect Current Medications Acetaminophen (Acetaminophen 325 Mg Tablet) 650 mg PO Q6H PRN PRN PRN Reason: Pain Score 1-10/Temp > 100.7 F Aspirin (Aspirin 81 Mg Tab.Chew) 81 mg PO DAILY@0800 [facility] Last Admin: 06/24/20 09:08 Dose: 81 mg Documented by: Atorvastatin Calcium (Atorvastatin Calcium 40 Mg Tablet) 40 mg PO QHS [facility] Last Admin: 06/23/20 20:56 Dose: Not Given Documented by: Clopidogrel Bisulfate (Clopidogrel Bisulfate 75 Mg Tablet) 75 mg PO DAILY [facility] Enoxaparin Sodium (Enoxaparin 40 Mg/0.4 Ml Syringe) 40 mg SC DAILY [facility] Last Admin: 06/24/20 09:08 Dose: 40 mg Documented by: Sodium Chloride () 250 mls @ 15 mls/hr IV .[id number] PRN PRN Reason: Saline Flush Sodium Chloride () 250 mls @ 15 mls/hr IV .[id number] PRN PRN Reason: Additional IVPB Infusion Levothyroxine Sodium (Levothyroxine 75 Mcg Tablet) 75 mcg PO DAILY@0600 [facility] Last Admin: 06/24/20 06:10 Dose: Not Given Documented by: Lisinopril (Lisinopril 5 Mg Tablet) 5 mg PO DAILY [facility] Last Admin: 06/24/20 09:08 Dose: 5 mg Documented by: Ondansetron HCl (Ondansetron 4 Mg/2 Ml Vial) 4 mg IV Q8H PRN PRN PRN Reason: NAUSEA/VOMITING Senna/Docusate Sodium (Senna/Docusate Sodium 1 Tablet) 2 tablet PO BID PRN PRN PRN Reason: Constipation Sodium Chloride (0.9% Saline Lock 10 Ml Syringe) 10 - 40 ml IV UD PRN PRN Reason: SALINE FLUSH Zolpidem Tartrate (Zolpidem Tartrate 5 Mg Tablet) 5 mg PO QHS PRN PRN PRN Reason: INSOMNIA Medical Necessity - Tobacco Use Smoking Status: Never smoker Assessment/Plan All Active Problems Difficulty swallowing (Acute) Left arm weakness (Acute) #1 acute right MCA ischemic stroke-probably secondary as a sequela I from COVID- 19 infection, patient will be placed on Plavix and aspirin, physical therapy will continue to see her, she will have an echocardiogram performed tomorrow. Patient will also need a CTA of her head and neck which I will order. #2 patient COVID-19 infection-no treatment presently needed #3 essential hypertension #4 hypothyroidism #5 left Boykin's palsy-chronic Inpatient E&M: 40564 Init Hosp L3
--- NOTE | 2020-06-24 19:38 | CT_ITS ---
We are attempting to reach an attending provider to discuss findings. An addendum with communication details will be sent when the communication is complete. RT MCA INFARCT ON MRI, COVID POSITIVE. H/O BELLS PALSY W/ CHRONIC LT FACIAL DROOP. TECHNIQUE: Noncontrast axial images were obtained of the brain. Subsequently, routine carotid CT angiogram protocol was performed without and with IV contrast. In addition, images were obtained of the Protem of [place]. Nascet criteria using the distal ICAs for comparison were used for evaluation of stenoses. 3D reconstructions were reviewed. A radiation dose optimization technique was used for this scan. IV Contrast dosage and agent: IV 75 ML ISOVUE 370 COMPARISON: MRI of the brain was performed about [address] scan of the brain was performed about 5 hours earlier FINDINGS: --CT BRAIN: BRAIN PARENCHYMA: No intra- or extra-axial hemorrhage. Acute infarct in the right frontal lobe extending into the right insular cortex demonstrates edema with loss of ramirez-white differentiation consistent with an acute infarct. The area of edema causes minimal focal swelling with an effacement of posterior right frontal lobe sulcus above the sylvian fissure, but without significant mass effect to the entire brain. There may be perhaps 1-2 mm of [id number] midline shift. Otherwise there is preservation of the ramirez-white interface. Posterior fossa structures are unremarkable. CSF SPACES: Appropriate for age. No hydrocephalus. Basal cisterns are patent. CALVARIUM, SKULL BASE, PARANASAL SINUSES AND MASTOID AIR CELLS: Clear. No discrete lytic or blastic abnormalities. ORBITS: Both globes, extraocular muscles, optic nerves and retrobulbar fat appear unremarkable. ASPECTS Score for Acute Strokes: 9 --CTA NECK: AORTIC ARCH AND BRANCHES: Atherosclerotic plaque is present within the aortic arch especially around the origin of the left subclavian artery but without significant stenosis. RIGHT CCA: Within the distal right CCA, just inferior to the right carotid bulb, there is calcific and soft plaque. RIGHT ICA: Calcific and soft plaque within the right carotid bulb into the right ICA. There is a tiny strand of thrombus within the lumen of the proximal, downstream portions of the right ICA, directly adjacent to the calcific plaque. This is perhaps best demonstrated on the axial series 4, images 86-89. This right ICA intraluminal thrombus is about 5 mm in length, and 1 mm in diameter. The right IJ remains widely patent into the skull base. This thrombus and calcific plaque does contribute to a stenosis. At its narrowest, at the level of the soft and calcific plaque in the lumen is narrowed to 2 mm. More cranially the lumen is 4 mm consistent with a 50% stenosis. LEFT CCA: No occlusion or significant stenosis within the left CCA. Within the very distal left CCA, just downstream from the CCA bifurcation and carotid bulb there is some calcific plaque on the lateral wall of the vessel. LEFT ICA: Within the left carotid bulb there is calcific and soft plaque. This contributes to less than 20% stenosis. There is some plaque that extends more cranially, but without significantly narrow the luminal diameter of the left ICA RIGHT VERTEBRAL ARTERY: No occlusion, significant stenosis or dissection. LEFT VERTEBRAL ARTERY: Focal calcific plaque is present at the origin of the left vertebral artery. Due to the plaque, the contrast opacified lumen of the left vertebral artery at its origin is narrowed to 1.5 mm. More cranially the diameter of the left vertebral artery is 3 mm, consistent with a 50% stenosis. NECK SOFT TISSUES: Airspace disease is present within the left upper lobe. This may represent pneumonia. Thyroid atrophy. Within the left lobe of the thyroid gland there is a 5 mm hyperenhancing nodule. This of unknown etiology. Recommend comparison to previous imaging. In the absence of previous imaging consider a thyroid ultrasound.. Bones: Multilevel degenerative disc disease is mild. Some facet arthropathy. Kyphosis within the upper thoracic spine with mild hyperlordosis within the cervical spine. Some facet arthropathy. --CTA HEAD: --Anterior circulation: ICAs: Some calcific plaque is present within the cavernous sinus portions of both ICAs contributing to perhaps 40% stenosis, slightly greater on the right than left ACAs: No significant stenosis at the visualized segments. ACOM: Present. MCAs: No significant stenosis at the visualized segments. --Posterior circulation: PCOMs: A left-sided posterior communicating artery is present. staff physical therapist: The preponderance of flow to the left COMMERCIAL DRONE PILOT, if not all the flow comes from the posterior communicating artery on the left. The right COMMERCIAL DRONE PILOT is normal BASILAR ARTERY: No significant stenosis. VERTEBRAL ARTERIES: No significant stenosis at the intradural/visualized segments. No evidence of intracranial aneurysm or vascular malformation. CT/CTA Head AND Neck W/ Contrast IMPRESSION: Maturation of right frontal and insular cortex acute infarct with greater amount of edema on the current study than the study from several hours earlier. Minimal effacement of sulci and mass effect. Calcific plaque within the right carotid bulb. Adjacent to the right carotid bulb calcific plaque there is a 5 x 2 mm thrombus within the lumen of the vessel. I perceive this as acute thrombus rather than chronic mural soft plaque. Individualized dose optimization techniques were used for this CT. at [id number] Reported and signed by: Silvio Styles MD Electronically Signed: Silvio Styles MD at 22:45 EST Tel , Service support ,
[2020-06-24] MEDS: Atorvastatin Calcium 40 MG Tablet PO (21:57)
[2020-06-24] MEDS: 0.9% Saline Lock 10 ML Syringe IV (21:58)
[2020-06-25] VITALS (9 sets, daily range): BP systolic 107–121; BP diastolic 70–77; PULSE 65–84; RESP 17–18; TEMP 36.4–36.8; O2SAT 97; BMI 21.2
[2020-06-25] MEDS: Levothyroxine 75 MCG Tablet PO (05:34)
[2020-06-25] MEDS: Lisinopril 5 MG Tablet PO (09:12)
[2020-06-25] MEDS: Clopidogrel Bisulfate 75 MG Tablet PO (09:13)
[2020-06-25] MEDS: Aspirin 81 MG TAB.CHEW PO (09:13)
[2020-06-25] MEDS: Enoxaparin 60 MG/0.6 ML Syringe 46 MG SC (09:13)
--- NOTE | 2020-06-25 10:20 | TELEMED_ITS ---
[facility] Tele[facility] has confirmed receipt of a request for visit. This document confirms receipt of the order initiating the consult. To find the results of the consultation, please view the patient's reports for the scanned Telemed Consult.
--- NOTE | 2020-06-25 10:54 | CASEMGMT ---
SW completed a PHQ 9 with patient as she had a Stroke. She scored a 2 which indicates minimal depression. Nikkie PALMA MSW
--- NOTE | 2020-06-25 12:19 | CDU_ITS ---
Reason For Study: Right carotid thrombus Rt. Velocities/BP Lt. Velocities/BP Mid CCA 61.7/14.7 cm/sec. Mid CCA 81.4/21.2 cm/sec. Prox ICA 104.7/37.7 cm/sec. Prox ICA 78.7/23 cm/sec. Mid ICA 139.4/38.9 cm/sec. Mid ICA 89.3/24.5 cm/sec. Dist ICA 60.5/22 cm/sec. Dist ICA 63.1/20.4 cm/sec. Rt. ICA/CCA = 2.26. Lt. ICA/CCA = 1.10. Prox ECA 60.8/4.7 cm/sec. Prox ECA 59.8/8.8 cm/sec. Rt. Vert. 67.3/14.6 cm/sec. Lt. Vert. 46.6/13.5 cm/sec. Right Extracranial There is intimal thickening but no significant atherosclerotic plaque noted in the right common carotid artery. There is heterogeneous, irregular atherosclerotic plaque noted in the right internal carotid artery. There is intimal thickening but no significant atherosclerotic plaque noted in the right external carotid artery. Antegrade flow is noted in the right vertebral artery. Left Extracranial There is intimal thickening but no significant atherosclerotic plaque noted in the left common carotid artery. There is heterogeneous, irregular atherosclerotic plaque noted in the left internal carotid artery. There is intimal thickening but no significant atherosclerotic plaque noted in the left external carotid artery. Antegrade flow is noted in the left vertebral artery. Procedure Carotid Duplex [id number]. This is a Carotid Duplex examination using B-mode, color flow and specral Doppler. Exam performed portable in patient room. The exam was abbreviated due to the COVID 19 protocol. Interpretation Summary Irregular calcific plaque with shadowing right proximal internal carotid 50 to 69% stenosis right mid internal carotid The irregular calcific plaque is well inspected and appears to be consistent with normally visualized irregular plaque. A distinct area which could be considered to be thrombus is not identified Less than 50% stenosis right external carotid Irregular calcific plaque with shadowing in the proximal left internal carotid with less than 50% stenosis Less than 50% stenosis left external carotid Patent and antegrade vertebrals bilaterally COVID-19 protocol Ordering Physician: Jayden Reed Referring Physician: Cyndie Ac M.D. Performed By: Lexi Webster RVT
--- NOTE | 2020-06-25 14:09 | CASEMGMT ---
CLOVER CHING assessment: Phone interview with patient for initial transition planning/care coordination assessment as pt is in COVID precautions at this time. RN HUMZA introduced self and role at [facility], pt voices understanding and consents to asseessment at this time. Pt is A/Ox4 at this time and answers all questions appropriately at this time. Care providers, pharmacy, and demographics verified at this time. Presentation: Pt c/o numbness/tingling in left arm since yesterday am-pt also reports trouble swallowing pills/increased fatigue. COVID +-sx' started 12 days ago Admitting dx: CVA/COVID PCP: Osorio Specialists: Pt states no current specialists. Preferred Pharmacy: [facility](for this visit)/[facility] Insurance: AeR Prescription Benefit: AeR Living Will/HPOA: Pt states does not have LW/HPOA and declines AD info at this time. [place]: [place] Living Arrangements: Pt states lives alone in 1 story apartment with 2 steps in and states no concerns at home at this time. Pt states is independent with ADL's. Transportation: Pt states drives self and states no transportation concerns at this time. DME/HHC: Pt states no current DME or need for any at this time. Pt states no hx of HHC or SNF in the past. Pt does not feel the need for any further therapy at this time, but CM to follow. Pt states no concerns with going home at time of discharge. Pt states is retired. Pt states does not smoke cigarettes or drink ETOH. Pt states no further concerns/needs at this time. CM to follow for further therapy evals and any further discharge planning/needs. Advised pt to ask for CM if any further questions/concerns/needs arise, voices understanding. Pt Goal: Home Plan: Home w/ OP vs HHC, if pt agreeable. SStaten CLOVER CHING
--- NOTE | 2020-06-25 15:40 | CASEMGMT ---
Script for OP therapy left at desk for Dr. Reed to sign, if pt ends up being discharged today. Joe GALO aware to fax to [facility] and give original to pt at d/c, voices understanding. Brendon GALO CM
--- NOTE | 2020-06-25 16:50 | DCINST_ITS ---
- Discharge Diagnoses Current Active Problems: Current Active and Chronic Problems Difficulty swallowing (Acute) Left arm weakness (Acute) Hypertension (Chronic) Hypothyroidism (Chronic) You will use the following diet at home:: No restrictions Your food should be the consistency of: Regular Your liquids should be the consistency of: Regular/Thin Discharge Activity: Return to Normal Activity Weight Bearing Status: Full weight bearing Additional Instructions: You will be set up for physical therapy as an outpatient Allergies/Adverse Reactions: Allergies Sulfa (Sulfonamide Antibiotics) Adverse Reaction (Verified 06/23/20 13:46) Hives Medications to take at Discharge Acetaminophen [Tylenol Tablet] 650 mg PO Q6H PRN PRN tablet 06/25/20 Aspirin [Aspirin, Baby] 81 mg PO DAILY@0800 tab.chew 06/25/20 Atorvastatin Calcium [Lipitor] 80 mg PO DAILY #30 tab 06/25/20 Clopidogrel Bisulfate [Plavix] 75 mg PO DAILY #30 tab 06/25/20 Levothyroxine [Synthroid] 75 mcg PO DAILY #30 tab 06/25/20 Lisinopril 5 mg PO DAILY #30 tab 06/25/20 The following prescriptions were given: Atorvastatin Calcium [Lipitor] 80 mg PO DAILY #30 tab Transmission Status: Pending to [facility] Lisinopril 5 mg PO DAILY #30 tab Transmission Status: Pending to [facility] Clopidogrel Bisulfate [Plavix] 75 mg PO DAILY #30 tab Transmission Status: Pending to [facility] Levothyroxine [Synthroid] 75 mcg PO DAILY #30 tab Transmission Status: Pending to [facility] Primary Care Physician: Cyndie Ac MD [Primary Care Provider] - Please follow up with your Primary Care Physician in: in 7-10 days, you will need a repeat CTA of the neck performed in 3-4 weeks Test Results: Test results from this visit will be discussed in further detail at your follow- up appointment, if applicable.
--- NOTE | 2020-06-26 11:24 | DS.PCM_ITS ---
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 Patient had a history of coronavirus infection 2 weeks prior. Work-up in the emergency room revealed a slightly low potassium at 3.3, CT of the brain did not show any acute process, she had sequelae of Boykin's palsy with permanent left facial drooping. Patient was placed on PCU, stroke scores were obtained and remained unremarkable, she underwent an MRI of the brain which showed the presence of a right middle cerebral artery stroke, patient had no discernible deficits on examination except for some unsteadiness walking. Patient underwent a CTA of her head and neck, the CTA showed a nonocclusive stenosis of her right carotid artery with the presence of a small thrombus near the right carotid bulb. Consultation was obtained from teleneurology who did not feel the patient should be placed on full anticoagulation but recommended follow-up with the vascular surgeon, I contacted Dr. Dixon by phone and he recommended an ultrasound of the carotids, this ultrasound was carried out and showed no evidence of thrombus and no evidence of occlusive carotid disease. Patient was seen by PT and OT as well as speech therapy, it was recommended the patient continue with outpatient PT. On 06/25/2020, patient was seen and examined: General: Alert, Oriented x3, Coop erative, No apparent distress, Well developed HEENT: Atraumatic, PERRLA, EOMI, Normocephalic, - - Patient has left-sided facial drooping which is chronic in nature Oral: Moist Mucosa Neck: Supple, No JVD, Negative Carotid Bruits, Trachea Midline, Thyroid Normal Size and Texture Lungs: Clear to auscultation, Normal air movement, No rhonchi, No wheeze, No rales Cardiovascular: Regular rate, Regular Rhythm, Normal S1, Normal S2, No murmurs Abdomen: Bowel Sounds Present, Soft, Non Tender, Non-Distended Extremities: No clubbing, No cyanosis, No edema, Capillary Refill Less than 3 Seconds Skin: No rashes, No breakdown Musculoskeletal: No Tenderness to Palpation of Joints or Extremities Neurological: Cranial nerves II-XII grossly intact, Neuro grossly intact, - - Patient has left-sided facial drooping Psych/Mental Status: Normal Affect, Appropriate, Alert and oriented to time, place, person, mood and affect Patient was discharged home in stable condition on 06/25/2020, she was instructed to maintain Plavix and aspirin and she was instructed to follow-up with her PCP. I called her PCP (Dr. Ac) and I told her that I recommended the patient get a repeat CTA in 3 to 4 weeks to verify whether this thrombus in her right carotid was still present. Patient Problems: Active and Suspected Problems Difficulty swallowing (Acute) Left arm weakness (Acute) - Physical Exam Vitals/I&O's: Vital Signs Temp Pulse Resp BP Pulse Ox 97.5 F L 76 18 107/77 97 06/25/20 16:52 06/25/20 16:52 06/25/20 16:52 06/25/20 16:52 06/25/20 16:52 Oxygen Delivery Method Room Air Weight: 46.085 kg Body Mass Index (BMI) 21.2 Finger Stick Blood Glucose 109 Intake and Output for Last 24 Hours 06/24/20 06/25/20 06/26/20 23:59 23:59 23:59 Intake Total 2099 465 / 465 Output Total 0 / 0 Balance 2099 465 / 465 Discharge Activity: Return to Normal Activity Weight Bearing Status: Full weight bearing Home Medications: Medications to take at Discharge Acetaminophen [Tylenol Tablet] 650 mg PO Q6H PRN PRN tab 06/25/20 Aspirin [Aspirin, Baby] 81 mg PO DAILY@0800 tab.chew 06/25/20 Atorvastatin Calcium [Lipitor] 80 mg PO DAILY #30 tab 06/25/20 Clopidogrel Bisulfate [Plavix] 75 mg PO DAILY #30 tab 06/25/20 Levothyroxine [Synthroid] 75 mcg PO DAILY #30 tab 06/25/20 Lisinopril 5 mg PO DAILY #30 tab 06/25/20 Following Prescriptions Were Given to Patient: Atorvastatin Calcium [Lipitor] 80 mg PO DAILY #30 tab Transmission Status: Received by [facility] Lisinopril 5 mg PO DAILY #30 tab Transmission Status: Received by [facility] Clopidogrel Bisulfate [Plavix] 75 mg PO DAILY #30 tab Transmission Status: Received by [facility] Levothyroxine [Synthroid] 75 mcg PO DAILY #30 tab Transmission Status: Received by [facility] Primary Care Physician: Cyndie Ac MD [Primary Care Provider] - Please follow up with your Primary Care Physician in: in 7-10 days, you will need a repeat CTA of the neck performed in 3-4 weeks Disposition: Home Minutes spent on discharge:: 32 Patient Condition:: Stable Medical Necessity - Tobacco Use Smoking Status: Never smoker Meaningful Use Info Meaningful Use Diagnoses (Choose all that apply): Ischemic CVA - CVA Therapy Assessed for PT,OT and/or ST?: Yes - Ischemic Stroke Antithrombotic order at d/c?: Yes Dx of Atrial fib/flutter?: No Anticoagulant at discharge?: No Reason anticoagulant not ordered: Treatment not Indicated Statins at discharge?: Yes Primary Dx Acute Ischemic CVA?: Yes IV tPA ordered during stay?: No Reason IV t-PA not ordered: Treatment not Indicated Inpatient E&M: [id number] [facility]
== END 2020-06-25 19:00 | disposition home or self-care (01) | DRG 64 ==
LOC: ED 14:35 → PCU 18:18
PROVIDERS: Admitting Provider Hospitalist; Emergency Provider Emergency Medicine; PCP Internal Medicine; Visit Provider Internal Medicine
DX: I63.511 Cerebral infarction due to unspecified occlusion or stenosis of right middle cerebral artery (principal); U07.1 COVID-19; I10 Essential (primary) hypertension; E03.9 Hypothyroidism, unspecified; G51.0 Bell's palsy; R13.10 Dysphagia, unspecified; E87.6 Hypokalemia
CPT/HCPCS: 70450; 70496; 70498; 70551; 71045; 80048; 80053; 80061; 81001; 82550; 82962; 83605; 84484; 85025; 85610; 85730; 87635; 92610; 93005; 93880; 96360; 96361; 97110; 97116; 97162; 97166; 97530; 97535; 99251; 99284; 99285; J7030; Q9967; A4216; G0463; U0002

== ENCOUNTER 2020-07-11 13:30 | Outpatient (RCR) | payer MEDICARE, SELFPAY ==
[2020-06-25 10:56] VITALS: BMI 21.2
--- NOTE | 2020-07-04 13:10 | HP.PTEVAL_ITS ---
Patient's Visit Information JUNE MAIER is a 64 year old F referred to Physical Therapy by Dr. Jayden Reed DO with a diagnosis of CVA. Date of Evaluation: 07/04/20 Physical Therapist: Mitchell Conde, DPT, OCS, CSCS - Visit Plan Plan: No skilled PT required at this time. - Subjective I was in the hospital with Covid and got really weak. Did have an MRI and it showed a very very mild stroke, this was done due to weakness. Got out of the hosptial two weeks ago. No pain. No dizzyness. Getting around is improving as I was very weak. no f/u with Dr. Mitchell. No asymmetrical weakness. Will have f/u catscan of throat as she may have had a blood clot in her throat area. Overall is 75% back to normal. Still feels tired a lot. Strength is slowly improving. Sleeping is OK. Has not been walking around apartment like she normally does. Cleaned kitchen when got home from hospital and it wore her out. Lives alone in apartment. No steps. Dresses , bath and shower is OK now. Activities are not being avoided but has to rest in between activities at home. Has not returned to walking around the apartment yet. Hobbies: watches TV and being with friends are her hobbies and going out to eat. Involved in evangelical and has gotten back to those things. Feels like she could go out to eat. No cane or AD needed. Feels like balance is OK, walks carefully. Chews carefully and voice is getting louder. No ADL concerns outside of weakness. - Objective L facial droop from Boykin's Palsy 10 years ago. UE adn LE AROM WFL and symmetrical. strength UE 3+ and LE 4- in hips, 4 in knee flex/ext adn 4 in ankles. HS mildly tight, otherwise flexibility WNL. reflexes 2/3 patella adn achilles. Sensation WNL to gross light touch throughout LE. Coordination to reciprocal toe and heel tap and heel cash test are normal. VOR walking normal. Can do steps without rail up but needs rail to descend. - Balance Scores Functional Gait Assessment Score: 28 % Disability: 6.6700 CATSIB Score (Max score 120 seconds): 120 - Rehabilitation Potential Physical Therapy Diagnosis: No deficits from CVA, slightly weak from the hospital but improving rapidly. - Anticipated Interventions Thank you for the opportunity to evaluate your patient. For Medicare and Medicare HMO plans, please review the plan of care and approve it. It will need to be FAXED BACK to us at [phone] for Medicare purposes. For Medicare only, by signing this I certify the plan of care. Please let me know if there are questions or concerns regarding this plan of care. Physician Signature: Date:
--- NOTE | 2020-07-11 13:41 | HP.OTEVAL_ITS ---
Patient's Visit Information JUNE MAIER is a 64 year old F, referred to Occupational Therapy by Dr. Cyndie Ac MD, with a diagnosis of CVA. Date of Evaluation: 07/11/20 Occupational Therapist: Laurel Alan, OTR/L, CHT - Subjective This 64 year old female was seen for OT eval with dx of CVA. Pt states she tested positive for COVID-19. Pt states she felt weak and and went to the ER on 2019 and D/C on 2019 with orders to see PT/OT/Speech therapy. Pt lives alone in a one story home. Pt states she is ind. with bathing/dressing. Pt ind. with driving. pt amb. without devices. pt ind. with home mtg. pt states she feels 95% better than she did two weeks ago. pt currently denies numbness/tingling or weakness. Just tired and need to nap during the day) - ROM ROM Comments: pt demo with bilateral UE ROM WNL. L facial droop from Boykin's Palsy 10 years ago. UE adn LE AROM WFL and symmetrical - Strength Operations Support Coordinator: right 30# left 27# Lateral Pinch: right 12# left 12# Tripod Pinch: right 12# left 10# Strength Comments: pt demo BUE MMT at 4/5 no deficits indicated in strength. pt is right handed - Sensation Sensation Comments: denies. states this resolved while at hospital - Quick DASH-Disab of Arm,Shoulder& Hand Quick DASH Score: 9.0900 - Rehabilitation General Assessment: At this time pt demo ROM and UB strength at a functional level. Pt reports she is ind. with all ADls and IADLS at this time. Pt does not demo need for skilled OT servies at this time. - Visit Plan TEXT: Thank you for the opportunity to evaluate your patient. For Medicare and Medicare HMO plans, please review the plan of care and approve it. It will need to be FAXED BACK to us at [phone] for Medicare purposes. Please let me know if there are questions or concerns regarding this plan of care. Physician Signature: Date:
--- NOTE | 2020-07-11 18:05 | HP.SP.AD_ITS ---
History - History Date of Eval: 07/11/20 Medical Diagnosis (from RX): CVA Date of Onset of Diagnosis: 06/24/2020 Previous speech therapy: Yes Results: When her weakness had onset on 06/22/2020, pt felt so weak she couldn't swallow as well as usual. Dysphagia evaluation completed during recent hospitalization on 06/24/2020 at [facility]. Pt was recommended for regular textures / thin liquids w/ distant supervision. Pt discharged from hospital with Regular / Thin diet orders. Pt has since had no reported difficulty swallowing. She noted she takes care to take her time eating and complete smaller bites. Other Relevant Medical History/Diagnoses/Surgery: The pt tested positive for COVID-19 in middle of May. On06/21/2020, her friend took her to the ER as she had increased weakness. She was sent home, but returned to the ER on 06/23/2020 as her weakness worsened. Pt admitted and had MRI on 06/24/2020 that stated had had a mild stroke. Pt had Boykin's palsy 10 years ago, which caused L sided facial droop. She gets Botox injections for her eye. 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 Pt has been managing medications and finances without assistance or difficulty per pt report. Pt noted she had a weak voice after having COVID, but that she has noticed her voice becoming stronger daily. Medications related to this diagnosis: lisinopril, atorvastatin, aspirin, clopidogrel, levothyroxin Smoking Status: Never smoker Hx Smoking: No Hx Tobacco Use: No - Pain Is pain an issue with your current prescribed condition?: No - Personal Occupation: retired teacher Right Hearing Abillity: Hard of Hearing Left Hearing Abillity: Hard of Hearing Patients Living Arrangements: Alone Patient Allergies - Allergies Allergies Sulfa (Sulfonamide Antibiotics) Adverse Reaction (Verified 06/23/20 13:46) Hives MAXI - MAXI MAXI Administered: Yes MAXI: The Assessment of Language-Related Functional Activities (MAXI) consists of ten subtests, each of which assesses a different functional activity that are critical for safe independent functioning in the home environment. Each subtest requires the use of all language modalities as well as cognitive and motor skills. Each subtest also allows observance of multiple cognitive porcesses, which can help eliminate administering specialized tests in certain areas. Independent Functioning Ratings are identified to determine safe independent functioning in the home environment for two distinct age groups: (1) individuals < 65 years of age, and (2) individuals ages 65 years of age and up. Independent Functioning Rating (IFR) are reported as followed; 1= high probablility of independent functioning, 2= indication of need for some level of assistance on the task, requiring further exploration, 3= high probability that this individual is not able to function independently on this task. The results of the MAXI are as followed: Date: 07/11/20 - Telling Time Percent: 100% IFR: 1 = high probability of independent functioning. - Counting Money Percent: 90% IFR: 1 = high probability of independent functioning. - Addressing an Envelope Percent: 100% IFR: 1 = high probability of independent functioning. - Solving Daily Math Problems Percent: 70% IFR: 1 = high probability of independent functioning. - Writing a Check & Balancing a Checkbook Percent: 100% IFR: 1 = high probability of independent functioning. - Understanding Medicine Labels Percent: 100% IFR: 1 = high probability of independent functioning. - Using a Calendar Percent: 100% IFR: 1 = high probability of independent functioning. - Check & Check [place] Percent: 100% IFR: 1 = high probability of independent functioning. - MAXI Comments Test Summary Entirety of test not completed due to time constraints. Pt scored 76/80 points administered on this date. Pt had mild difficulty with numerical processing with word problems, but demonstrated check writing/balancing and money counting subtest without difficulty. She did require extended time to complete some of the above noted subtests, but pt appears to be WFL with cognitive-linguistic function. Would not recommend speech therapy services at this time. Will recommend pt inform her physician and reconsult speech therapy if she notices increased difficulty managing personal finances and medications, although pt denies difficulty with these tasks at this time. Plan - Plan Plan: Speech therapy not warranted at this time. Evaluation only completed. - Recommendations Treatment Warranted: No Education - Patient has Indicated that the Following Identified Educational Needs: None The Patient has indicated that they have no educational or learning abilities that may effect their care.: Yes
== END 2020-07-11 19:00 | disposition home or self-care (01) ==
LOC: SP 13:30
PROVIDERS: PCP Internal Medicine; Referring Provider Internal Medicine; Visit Provider Internal Medicine
DX: Z86.73 Personal history of transient ischemic attack (TIA), and cerebral infarction without residual deficits (principal)
CPT/HCPCS: 97162; 97166